=== PATIENT | male | born 1950 | race Caucasian/White ===

== ENCOUNTER 2024-07-26 14:13 | Emergency (ER) | payer MEDICARE ==
[2024-07-26 15:24] LABS: #Basophils 0.02 10x3/uL (0.0-0.2); #Eosinphils 0.35 10x3/uL (0.0-0.5); #Monocytes 0.66 10x3/uL (0.0-1.1); #Neutrophils 2.75 10x3/uL (1.5-8.4); %Basophils 0.4 % (0.0-2.0); %Eosinophils 6.8 % (0.0-6.0); %Lymphocytes 25.8 % (18.0-47.0); %Monocytes 12.9 % (0.0-10.0); %Neutrophils 53.9 % (40.0-75.0); Hematocrit 46.5 % (38.8-50.0); Hemoglobin 14.9 g/dL (13.5-17.5); Mean Corpuscular Hemoglobin 27.1 pg (27.0-33.0); Mean Corpuscular Volume 84.5 fL (81.2-95.1); Mean Platelet Volume 10.8 fL (7.4-10.4); Platelet Count 177 10x3/uL (150-450); RBC Distribution Width 14.6 % (11.5-14.5); White Blood Cell (WBC) Count 5.1 10x3/uL (3.5-10.5)
[2024-07-26 16:08] LABS: ALT (SGPT) 55 U/L (8-55); AST (SGOT) 48 U/L (5-34); Albumin 3.7 g/dL (3.4-4.8); Alkaline Phosphatase 73 U/L (40-110); Anion Gap 13 mmol/L (10-20); BUN (Urea Nitrogen) 14 mg/dL (8.4-25.7); Bilirubin, Total 0.7 mg/dL (0.2-1.2); Calc. Creatinine Clearance 0 mL/min (70-130); Calcium 9.3 mg/dL (7.8-10.44); Carbon Dioxide 25 mmol/L (23-31); Chloride 101 mmol/L (98-107); Estimated GFR 66; Globulin 2.8 g/dL (2.4-3.5); Glucose 112 mg/dL (83-110); Potassium 4.2 mmol/L (3.5-5.1); Protein, Total 6.5 g/dL (5.8-8.1); Sodium 135 mmol/L (136-145)
[2024-07-26 16:16] LABS: Troponin I Less than 0.010 ng/mL (< 0.028)
[2024-07-26] MEDS ORDERED: Nitroglycerin 0.4 MG TAB 1 EACH ONE (17:05)
== END 2024-07-26 17:07 | disposition home or self-care (01) ==
LOC: CSHERS 14:13
DX: R07.9 Chest pain, unspecified (principal); I10 Essential (primary) hypertension
CPT/HCPCS: 36415; 71045; 80053; 84484; 85025; 93005